=== PATIENT | male | born 1965 | race Caucasian/White ===

== ENCOUNTER 2017-03-18 07:44 | Day surgery (SDC) | payer BC ==
[2017-03-18] MEDS ORDERED: NALOXONE HCL INJ/PF 0.4 MG/1 ML SDV ONE (07:49)
[2017-03-18] MEDS ORDERED: ONDANSETRON HCL INJ/PF 4 MG/2 ML SDV ONE (07:49)
[2017-03-18] MEDS ORDERED: DIPHENHYDRAMINE HCL 50 MG/ML VIAL ONE (07:49)
[2017-03-18] MEDS ORDERED: FLUMAZENIL INJ 0.5 MG/5 ML VIAL ONE (07:50)
[2017-03-18] MEDS ORDERED: EPINEPHRINE INJ 1 MG/10 ML DISP.SYRIN ONE (07:50)
[2017-03-18] MEDS ORDERED: GLUCAGON,HUMAN RECOMB 1 MG INJ ONE (07:50)
[2017-03-18] MEDS: MIDAZOLAM 2 MG/2 ML INJ ONE ×3 (08:38→08:45)
[2017-03-18] MEDS: FENTANYL CITRATE INJ/PF 100 MCG/2 ML AMPUL ONE ×4 (08:40→08:48)
--- NOTE | 2017-03-18 09:00 | Operative Report ---
Operative Report DATE OF SURGERY: 03/18/17 Operative Report: The risks, benefits and alternatives of the procedure including risks of bleeding, perforation requiring surgery are explained to the patient in detail and informed consent is obtained. Patient was taken back to the endoscopy suite and placed in the left, lateral decubital position. Timeout was called. Conscious sedation medications administered. A rectal examination is done which did not reveal any masses, tears or fissures. An Olympus videoscope was inserted into the patient's rectum. The scope was then carefully advanced all the way to the cecum. The cecum was identified by the usual anatomical landmarks including the ileocecal valve as well as the appendiceal office. Photodocumentation was obtained. Prep was good. The scope was then sequentially pulled back via the various segments of the colon including the ascending colon, hepatic flexure, transverse colon, splenic flexure, descending colon finding to the rectosigmoid portions of the colon. Retroflexion maneuver is performed. PREOPERATIVE DIAGNOSIS: Personal history of polyp POSTOPERATIVE DIAGNOSIS: Follow right-sided inflammation status post biopsy rule out colitis OPERATION: Colonoscopy with biopsy SURGEON: AMEE SANDOVAL ANESTHESIA: Moderate Sedation - 8 mg of Versed, 150 mcg of fentanyl. Conscious sedation monitoring time 30 minutes. TISSUE REMOVED OR ALTERED: As noted above. COMPLICATIONS: None. ESTIMATED BLOOD LOSS: None. INTRAOPERATIVE FINDINGS: As described above. PROCEDURE: Patient tolerated procedure well. No immediate postprocedure complications are noted. Patient discharged in good condition. Discharge date 03/18/2017. Discharge diet: Regular. Discharge activity: Regular. 2-3 week follow-up to discuss findings. Patient is instructed to call the office or proceed to the emergency room should there be any further problems or questions. We will wait on pathology. If negative can probably have a 10 year surveillance unless there are other symptoms.
[2017-03-18 09:59] VITALS: BP 129/79
== END 2017-03-18 10:00 | disposition home or self-care (01) ==
LOC: END 07:44
PROVIDERS: ATTEND Internal Medicine Gastroenterology
PROC: 0DBF8ZX Excision of Right Large Intestine, Via Natural or Artificial Opening Endoscopic, Diagnostic (ICD-10-PCS; principal; 2017-03-18 08:30)
DX: R14.0 Abdominal distension (gaseous) (principal); Z86.010 Personal history of colon polyps; I10 Essential (primary) hypertension; N52.9 Male erectile dysfunction, unspecified; M54.2 Cervicalgia; Z79.899 Other long term (current) drug therapy
CPT/HCPCS: 45380; 88305 ×2; J2250; J3010; J0171; J1200; J1610; J2310; J2405; J3490

== ENCOUNTER 2018-04-06 13:03 | Emergency (ER) | payer BC ==
--- NOTE | 2018-04-06 15:05 | ER Document Report ---
ED Extremity Problem, Upper - General Chief Complaint: Shoulder Pain Stated Complaint: RIGHT ARM PAIN Time Seen by Provider: 04/06/18 14:39 Mode of Arrival: Ambulatory Information source: Patient Notes: Patient is a 52-year-old male comes emergency room complaining of right shoulder pain. Patient states approximately 4 weeks ago he was building a deck at his house and he picked up a 2 x 6 x 10 and started to swing it around to go towards the porch and he felt a snap in his right shoulder. He had instant pain but lasted a little while and went away and he continued to work. Over the course of the past 4 weeks it has remained aggravated and is not getting any better. He states that it is difficult to lift his arm much higher than the shoulder and to move it backwards like he is going to throw hurts even more. The area that he says hurts is the lateral right shoulder to the anterior portion of the right shoulder. Also states now he is having pain going down the right arm because of it. He denies any history of trauma to the shoulder in the past. 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 TRAVEL OUTSIDE OF THE [place] IN LAST 30 DAYS: No - HPI Patient complains to provider of: Injury, Pain, Right, Shoulder Onset: Other - 4 weeks ago Recent injury: Yes Where: Home Quality of pain: Sharp, Stabbing, Throbbing Severity of pain: Moderate, Constant, Still present Context: Other - Lifting and twisting motion with Hi-Torque Arm and Shoulder (Right): 1 - Area of discomfort and pain. Associated symptoms: Tingling Exacerbated by: Movement, Exertion Relieved by: Rest, Positioning Similar symptoms previously: Yes Recently seen / treated by doctor: No - Related Data Allergies/Adverse Reactions: aspirin [Aspirin] Allergy (Severe, Verified 03/18/17 08:09) Anaphylaxis morphine [Morphine] Allergy (Severe, Verified 03/18/17 08:09) PAIN ALL OVER Past Medical History - General Information source: Patient - Social History Smoking Status: Never Smoker Cigarette use (# per day): No Chew tobacco use (# tins/day): No Smoking Education Provided: No Frequency of alcohol use: None Drug Abuse: None Lives with: Family Family History: Reviewed & Not Pertinent - Past Medical History Cardiac Medical History: Reports: Hx Hypercholesterolemia, Hx Hypertension Denies: Hx Coronary Artery Disease, Hx Heart Attack Pulmonary Medical History: Denies: Hx Asthma, Hx Bronchitis, Hx COPD, Hx Pneumonia, Hx Respiratory Fail ure, Hx Sleep Apnea, Hx Tuberculosis Neurological Medical History: Denies: Hx Cerebrovascular Accident, Hx Seizures Endocrine Medical History: Renal/ Medical History: Malignancy Medical History: GI Medical History: Reports: Hx Gastroesophageal Reflux Disease, Hx Pancreatitis Musculoskeletal Medical History: Denies Hx Arthritis Psychiatric Medical History: Infectious Medical History: Past Surgical History: Reports: Hx Abdominal Surgery - pancreatic stents 2011, pancreas "washing". cyst removal 2009, Hx Pancreatic Surgery - cyst removed with washing 2009, pancreatic stent 2011 - Immunizations Immunizations up to date: Yes Hx Diphtheria, Pertussis, Tetanus Vaccination: Yes Hx Pneumococcal Vaccination: 04/09/13 Review of Systems - Review of Systems Constitutional: No symptoms reported EENT: No symptoms reported Cardiovascular: No symptoms reported Respiratory: No symptoms reported Gastrointestinal: No symptoms reported Genitourinary: No symptoms reported Male Genitourinary: No symptoms reported Musculoskeletal: See HPI, Joint pain, Joint swelling, Muscle pain Skin: No symptoms reported Hematologic/Lymphatic: No symptoms reported Neurological/Psychological: No symptoms reported -: Yes All other systems reviewed and negative Physical Exam - Vital signs Vitals: Temp Pulse Resp BP Pulse Ox 98.7 F 60 18 142/75 H 99 04/06/18 13:11 04/06/18 13:11 04/06/18 13:11 04/06/18 13:11 04/06/18 13:11 Interpretation: Hypertensive - Notes Notes: PHYSICAL EXAMINATION: GENERAL: Patient is a well-nourished well-developed 52-year-old male who is in no apparent distress on physical exam his abdomen. He does however appear somewhat uncomfortable especially when moving his right arm and shoulder. HEAD: Atraumatic, normocephalic. NECK: Normal range of motion, supple without lymphadenopathy LUNGS: Breath sounds clear to auscultation bilaterally and equal. No wheezes rales or rhonchi. HEART: Regular rate and rhythm without murmurs Musculoskeletal: patient's area of concern is his right shoulder and upper arm. Examination of this area shows him to be very cautious on his movement. In comparison to the left shoulder there does not appear to be any differentiation in size or swelling to that shoulder at this point. Passive range of motion shows discomfort at parallel at abduction and adduction. There is no crepitus felt with rotation of the shoulder. There is mild tenderness at the a cromioclavicular space. There is also tenderness on the anterior portion of the shoulder at the rotator cuff. Patient's vascular examination in the area shows he has good brachial pulse. He has good distal ulnar radial pulses as well with good cap refill in the nailbeds of the fingers of the right hand. 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 Weakness of the shoulder with any movement against resistance in any direction. NEUROLOGICAL: Normal speech, normal gait. Normal sensory, motor exams PSYCH: Normal mood, normal affect. SKIN: Warm, Dry, normal turgor, no rashes or lesions noted. Course - Re-evaluation Re-evalutation: 04/06/18 16:19 Patient's x-rays were negative for any acute findings on his right shoulder. Given the history concerned more about rotator cuff than primarily thing else however I could be a bit of end-stage tendinitis versus a bursitis of the shoulder as well I am we will place patient on a steroid taper to see if that h elps with the discomfort and pain along with little pain medication. I would highly recommend that he follows up with either his primary doctor to have an MRI of that shoulder done or I will give him the name of the orthopedic group on-call and have him decide if he wants to contact them to see if they can accommodate him as well. We will put him in a sling for now given the right shoulder some rest he is right-handed so I am sure that we will do only be a temporary solution. - Vital Signs Vital signs: Temp Pulse Resp BP Pulse Ox 98.7 F 60 18 142/75 H 99 04/06/18 13:11 04/06/18 13:11 04/06/18 13:11 04/06/18 13:11 04/06/18 13:11 Procedures - Immobilization Right Shoulder Time completed: 16:33 Pre-Proc Neuro Vasc Exam: Normal Immobilizer type: Sling Performed by: PCT Post-Proc Neuro Vasc Exam: Normal, Unchanged from pre-exam Alignment checked and good: Yes Discharge - Discharge Clinical Impression: Bursitis of right shoulder, Tendinitis of right shoulder Injury of right rotator cuff Qualifiers: Encounter type: initial encounter Qualified Code(s): S46.001A - Unspecified injury of muscle(s) and tendon(s) of the rotator cuff of right shoulder, initial encounter Condition: Stable Disposition: HOME, SELF-CARE Instructions: Bursitis ([facility]), Rotator Cuff Injury ([facility]) Additional Instructions: Bursitis You have been diagnosed as having bursitis. Bursitis is an inflammation of a fluid pouch (bursa) found near joints. This is usually due to repeated minor irritation, or pressure directly on the bursa. On occasion, the bursitis can be due to infection (your doctor has checked for this). Sometimes the doctor decides to remove the fluid from the bursa with a needle. This may be to examine the fluid for infection or to ease the pressure caused by the fluid. The usual treatment is rest, local warmth, (or cold if the bursitis is caused by an acute injury), and antiinflammatory medication. Occasionally, an injection of cortisone is necessary. You should call the doctor for re-examination if the pain increases significantly, or if the area becomes severely swollen and red, or fever develops. Rotator Cuff Injury You have injured your rotator cuff. This is a group of tendons that form a "cuff" around the upper arm bone. This usually results from an injury that tears the tendons, but sometimes the rotator cuff simply "wears out." If the rotator cuff is only partially torn, time and protection may allow it to heal. This may take several weeks. If the shoulder doesn't become free of pain, surgery may be considered. A complete tear of the rotator cuff requires surgery. If the shoulder is too painful to move, we may need to recheck in a few days. An arthrogram (injecting dye into the joint) or MR scan may be necessary to resolve the question. Initial treatment includes cold packs and a sling to rest the shoulder. We usually prescribe antiinflammatory medication. Be sure to keep your follow up appointment. Call us any time if there's severe pain, numbness, or loss of function. As we discussed your x-rays were negative however going back to what I originally told you I felt was going on was a bursitis or a rotator cuff. No given that being said the treatment for more both similar until you can follow- up with somebody. I would put you on a steroid taper and a little pain medication and rest as the primary lantigua ingredients. I understand you have to work me up to you your judgment on how you want to do that. I am going to give you the name of the orthopedic group is plant operations coordinator you they work well with our patients he may contact our office to see if they can accommodate you. If you got a primary care provider this is what I would suggest is seeing them first seen if they will order you an MRI of that shoulder and then set up an appointment with the orthopedist and going with the MRI and then you have accomplished more than waiting for a couple weeks to get in and the plan can be laid out as what needs to be done at that time. Rotator cuffs will sometimes heal on her own as far as getting better with pain that the problem is when you do a rotator cuff most the time you tear 1 of the areas in there and eventually it can become worse. Take medication as prescribed ice down 3 times a day for the next couple of days and then when you are back at working ice down when you come home from work at night. Should you have any concerns or problems return to ER for recheck. Prescriptions: Cyclobenzaprine HCl [Flexeril 10 mg Tablet] 10 mg PO TIDP PRN #21 tablet PRN Reason: Hydrocodone/Acetaminophen [Madison 7.5-325 mg Tablet] 1 tab PO Q4 #15 tablet Prednisone 10 mg PO ASDIR PRN 6 Days #1 tab.ds.pk PRN Reason: Forms: Elevated Blood Pressure Referrals: GATO PENNINGTON DO [Primary Care Provider] - Follow up as needed ERIC MADDEN DO [ACTIVE STAFF] - Follow up as needed
--- NOTE | 2018-04-06 15:32 | RADIOLOGY REPORT (SQ) ---
EXAM DESCRIPTION: SHOULDER RIGHT 2 OR MORE VIEWS COMPLETED DATE/TIME: 04/06/2018 3:18 pm REASON FOR STUDY: pain need true Y as well COMPARISON: None. NUMBER OF VIEWS: Three views. TECHNIQUE: Internal rotation, external rotation, and Y view images acquired of the right shoulder. LIMITATIONS: None. FINDINGS: MINERALIZATION: Normal. BONES: No acute fracture or dislocation. No worrisome bone lesions. JOINTS: No dislocation. VISUALIZED LUNGS AND RIBS: No pneumothorax. No rib fracture. SOFT TISSUES: No radiopaque foreign body. OTHER: No other significant finding. IMPRESSION: NEGATIVE STUDY OF THE RIGHT SHOULDER. NO RADIOGRAPHIC EVIDENCE OF ACUTE INJURY. TECHNICAL DOCUMENTATION: JOB ID: [id number] [employer]- All Rights Reserved Reading location - IP/workstation name: [email or web address]
[2018-04-06 16:59] VITALS: BP 145/84
== END 2018-04-06 16:58 | disposition home or self-care (01) ==
LOC: ER 13:03
DX: S46.001A Unspecified injury of muscle(s) and tendon(s) of the rotator cuff of right shoulder, initial encounter (principal); X50.0XXA Overexertion from strenuous movement or load, initial encounter; X50.1XXA Overexertion from prolonged static or awkward postures, initial encounter; Y93.H3 Activity, building and construction; Y92.009 Unspecified place in unspecified non-institutional (private) residence as the place of occurrence of the external cause; M75.51 Bursitis of right shoulder; M75.91 Shoulder lesion, unspecified, right shoulder; I10 Essential (primary) hypertension; Z88.6 Allergy status to analgesic agent; Z88.5 Allergy status to narcotic agent
CPT/HCPCS: 99283

== ENCOUNTER → 2019-09-27 | Outpatient (CLI) | payer BC ==
--- NOTE | 2019-09-27 08:43 | RADIOLOGY REPORT (SQ) ---
EXAM DESCRIPTION: C SP 4 OR 5 VIEWS IMAGES COMPLETED DATE/TIME: 09/27/2019 7:59 am REASON FOR STUDY: CERVICAL RADICULOPATHY M54.12 RADICULOPATHY, CERVICAL REGION COMPARISON: None. NUMBER OF VIEWS: Five views. TECHNIQUE: AP, lateral, obliques and odontoid radiographic images acquired of the cervical spine. LIMITATIONS: None. FINDINGS: MINERALIZATION: Normal. ALIGNMENT: Anatomic. VERTEBRAE: Vertebral bodies of normal height. DISCS: Disc space narrowing with osteophytes at C5-C6, C6-C 7, and C7-T1. FORAMINA: Foraminal narrowing due to osteophytes, most pronounced on the right at C6-C7. LATERAL AND POSTERIOR ELEMENTS: Facets, lateral masses and spinous processes without significant find ings. HARDWARE: None in the spine. SOFT TISSUES: No masses or calcifications. Lung apices clear. OTHER: No other significant finding. IMPRESSION: DEGENERATIVE DISC DISEASE IN THE LOWER CERVICAL SPINE. TECHNICAL DOCUMENTATION: JOB ID: [id number] 2010 [employer]- All Rights Reserved Reading location - IP/workstation name: [email or web address]
== END ==
LOC: OD 07:37
PROVIDERS: ATTEND Nurse Practitioner Family
DX: M50.13 Cervical disc disorder with radiculopathy, cervicothoracic region (principal)
CPT/HCPCS: 72050

== ENCOUNTER 2019-09-28 12:44 | Emergency (ER) | payer BC ==
[2019-09-28 12:50] VITALS: BP 149/84
--- NOTE | 2019-09-28 13:27 | ER Document Report ---
HPI - HPI Time Seen by Provider: 09/28/19 13:08 Pain Level: 4 Context: Patient is a 53-year-old male who presents the emergency department with a chief complaint of neck pain. Patient states that his neck pain started 6 days ago. States that he has some numbness and tingling that started 2 days ago. He saw his primary care provider and was started on cyclobenzaprine, which he states has not helped. Patient denies any new weakness. - ROS Systems Reviewed and Negative: Yes All other systems reviewed and negative - CONSTITUTIONAL Constitutional: DENIES: Fever, Chills - NEURO Neurology: DENIES: Weakness - REPRODUCTIVE Reproductive: DENIES: : - MUSCULOSKELETAL Musculoskeletal: REPORTS: Extremity pain, Neck Pain - Left - DERM Skin Color: Normal - Left shoulder Skin Problems: None Past Medical History - Social History Smoking Status: Never Smoker Chew tobacco use (# tins/day): No Frequency of alcohol use: None Drug Abuse: None Family History: Reviewed & Not Pertinent Patient has homicidal ideation: No - Past Medical History Cardiac Medical History: Reports: Hx Hypercholesterolemia, Hx Hypertension Denies: Hx Coronary Artery Disease, Hx Heart Attack Pulmonary Medical History: Denies: Hx Asthma, Hx Bronchitis, Hx COPD, Hx Pneumonia, Hx Respiratory Failure, Hx Sleep Apnea, Hx Tuberculosis Neurological Medical History: Denies: Hx Cerebrovascular Accident, Hx Seizures Endocrine Medical History: Renal/ Medical History: Malignancy Medical History: GI Medical History: Reports: Hx Gastroesophageal Reflux Disease, Hx Pancreatitis Musculoskeletal Medical History: Denies Hx Arthritis, Denies Hx Systemic Lupus Erythematosus Psychiatric Medical History: Infectious Medical History: Past Surgical History: Reports: Hx Abdominal Surgery - pancreatic stents 2011, pancreas "washing". cyst removal 2009, Hx Pancreatic Surgery - cyst removed with washing 2009, pancreatic stent 2011 - Immunizations Immunizations up to date: Yes Hx Diphtheria, Pertussis, Tetanus Vaccination: Yes Hx Pneumococcal Vaccination: 04/09/13 Vertical Provider Document - CONSTITUTIONAL Agree With Documented VS: Yes Exam Limitations: No Limitations General Appearance: No Apparent Distress - INFECTION CONTROL TRAVEL OUTSIDE OF THE [place] IN LAST 30 DAYS: No - HEENT HEENT: Atraumatic, Normocephalic, PERRLA - NECK Neck: Normal Inspection, Other - Tenderness noted to left trapezius muscle - RESPIRATORY Respiratory: Breath Sounds Normal, No Respiratory Distress - CARDIOVASCULAR Cardiovascular: Regular Rate, Regular Rhythm Pulses: Normal: Radial - MUSCULOSKELETAL/EXTREMETIES Musculoskeletal/Extremeties: Tender - Left trapezius muscle. negative: FROM - Decreased to left shoulder due to pain - NEURO Level of Consciousness: Awake, Alert, Appropriate Motor/Sensory: No Motor Deficit, No Sensory Deficit - DERM Integumentary: Warm, Dry, No Rash Course - Re-evaluation Re-evalutation: 09/28/19 13:30 Patient's physical exam is consistent with radiculopathy due to degenerative disc disease noted on his x-ray that was taken yesterday. We will start the patient on Robaxin. He will stop taking his cyclobenzaprine. He does have some muscle tension noted to his left trapezius muscle. Patient has follow-up with orthopedic surgery on October 17. I also advised the patient to follow-up with his primary care provider for referral out to physical therapy. He is in agreement with this plan. Follow-up precautions were given. Verbal discharge instructions were given to the patient. They verbalized understanding. They are stable for discharge. - Vital Signs Vital signs: Temp Pulse Resp BP Pulse Ox 97.8 F 71 16 149/84 H 98 09/28/19 12:49 09/28/19 12:49 09/28/19 12:49 09/28/19 12:49 09/28/19 12:49 Discharge - Discharge Clinical Impression: Neck pain Condition: Stable Disposition: HOME, SELF-CARE Additional Instructions: You were seen today in the emergency department for neck pain. Start Robaxin. Stop taking your cyclobenzaprine. Take the Robaxin an hour before bedtime to see how it makes you feel. Follow-up with your primary care provider. See if you can get a referral for physical therapy. Follow-up with the surgeon who referred to. Prescriptions: Methocarbamol [Robaxin 500 mg Tablet] 1,000 mg PO BID PRN #60 tablet PRN Reason: Referrals: GHADA HSU FNP [NO LOCAL MD] - Follow up in 3-5 days
== END 2019-09-28 13:35 | disposition home or self-care (01) ==
LOC: ER 12:44
DX: M54.2 Cervicalgia (principal); R20.0 Anesthesia of skin; E78.00 Pure hypercholesterolemia, unspecified; I10 Essential (primary) hypertension
CPT/HCPCS: 99283